=== PATIENT | male | born 1990 | race African-American/Black ===

== ENCOUNTER 2022-12-22 14:27 | Emergency (ER) | payer SELFPAY ==
[~2022-12-22] VITALS: Ht 172.7 cm; Wt 72.0 kg
[~2022-12-22 14:27] MED LIST: ALBUTEROL
[2022-12-22 14:39] VITALS: BP 142/76
== END 2022-12-22 19:14 | disposition left against medical advice (07) ==
LOC: ER 19:12
DX: M79.18 Myalgia, other site (principal); G89.11 Acute pain due to trauma; V49.49XA Driver injured in collision with other motor vehicles in traffic accident, initial encounter; Y93.89 Activity, other specified; Y92.488 Other paved roadways as the place of occurrence of the external cause; J45.909 Unspecified asthma, uncomplicated
CPT/HCPCS: 99283